=== PATIENT | female | born 1985 | race Caucasian/White ===

== ENCOUNTER 2020-12-24 17:55 | Outpatient (CLI) | payer OTHER, SELFPAY ==
--- NOTE | ~2020-12-24 | XR_ITS ---
EXAMINATION: XR foot LT 2V EXAM DATE: 12/24/2020 18:12 INDICATION: Pain in Lt ankle and joints of Lt foot, fell 7/6. Left foot swelling. TECHNIQUE: Frontal and lateral projections of the left foot. There is no prior study for comparison . FINDINGS: There are no acute fractures or dislocations identified. There is no subcutaneous gas. The soft tissue is unremarkable. There are no radiopaque foreign bodies. IMPRESSION: No acute osseous findings. Reviewed, dictated and finalized at location A. IMPRESSION: No acute osseous findings.
== END 2020-12-24 17:56 | disposition home or self-care (01) ==
LOC: ANHIMG 17:58
PROVIDERS: PCP Internal Medicine; Visit Provider Pediatrics
DX: M25.572 Pain in left ankle and joints of left foot (principal)
CPT/HCPCS: 73620

== ENCOUNTER 2021-05-05 09:23 | Outpatient (CLI) | payer OTHER, SELFPAY ==
[2021-05-05 10:35] LABS: Alanine Aminotransferase 13 U/L (4-35); Albumin Level 4.3 g/dL (3.5-5.1); Alkaline Phosphatase 42 U/L (38-126); Anion Gap 3 mmol/L (8-16); Aspartate Amino Transferase 26 U/L (14-36); Bilirubin,Total 0.3 mg/dL (0.2-1.3); Blood Urea Nitrogen 12 mg/dL (7-17); Calcium 9.4 mg/dL (8.4-10.2); Carbon Dioxide 30 mmol/L (22-30); Chloride 104 mmol/L (98-107); Cholesterol 147 mg/dL (0-200); Estimated Glomerular Filt Rate > 60; Glucose 92 mg/dL (65-110); HDL Direct 53 mg/dL; Potassium 4.2 mmol/L (3.4-5.0); Sodium 137 mmol/L (137-145); Triglycerides 66 mg/dL (<150)
[2021-05-05 10:46] LABS: LDL Cholesterol Direct 76 mg/dL
[2021-05-05 10:53] LABS: Basophils Absolute Auto 0.1 K/mm3 (0.0-0.1); Basophils Percent Auto 0.9 % (0.2-1.2); Eosinophils Absolute Auto 0.2 K/mm3 (0-0.3); Eosinophils Percent Auto 2.3 % (0-4.4); Hemoglobin 13.1 g/dL (12.0-15.0); Immature Granulocyte Absolute 0.02 K/mm3 (0.00-0.031); Immature Granulocyte Percent A 0.3 % (0-0.5); Lymphocytes Absolute Auto 1.77 K/mm3 (0.9-3.2); Mean Corpuscular HGB Conc 33.6 g/dl (32-36); Mean Corpuscular Hemoglobin 32.5 pg (26-34); Mean Corpuscular Volume 96.8 fl (80-100); Mean Platelet Volume 9.8 fl (7.4-10.4); Monocytes Absolute Auto 0.7 K/mm3 (0.1-0.6); Monocytes Percent Auto 9.4 % (2.6-8.5); Neutrophils Absolute Auto 4.7 K/mm3 (1.3-6.7); Neutrophils Percent Auto 63.1 % (45.5-73.1); Platelet Count Result 306 k/mm3 (150-375); Red Blood Count 4.03 M/mm3 (4.2-5.4); Red Cell Distribution Width 12.5 % (11.5-14.5); White Blood Count 7.4 K/mm3 (4.5-10.0)
[2021-05-05 11:40] LABS: Folic Acid 6.4 ng/mL (2.76->20)
== END 2021-05-05 09:24 | disposition home or self-care (01) ==
PROVIDERS: PCP Internal Medicine; Visit Provider Internal Medicine
DX: Z00.00 Encounter for general adult medical examination without abnormal findings (principal); R53.83 Other fatigue
CPT/HCPCS: 36415; 80053; 80061; 82607; 82746; 84443; 85025

== ENCOUNTER 2022-10-12 10:10 | Outpatient (RCR) | payer OTHER, SELFPAY ==
[2022-10-14] MEDS: RHO(D) IMMUNE GLOBULIN 300 MCG/2 ML SYRINGE IM (12:47)
== END 2023-01-10 23:59 | disposition home or self-care (01) ==
LOC: ANHLAB 10:10
PROVIDERS: PCP Internal Medicine; Visit Provider Obstetrics & Gynecology
DX: O36.0190 Maternal care for anti-D [Rh] antibodies, unspecified trimester, not applicable or unspecified (principal); Z3A.00 Weeks of gestation of pregnancy not specified
CPT/HCPCS: 36415; 85461; 86850; 86900; 86901; 90384; 96372; J2790

== ENCOUNTER 2022-12-08 15:56 | Inpatient (IN) | payer OTHER, MEDICAID, SELFPAY ==
[2022-12-08] VITALS (30 sets, daily range): BP systolic 111–161; BP diastolic 58–94; PULSE 57–90; TEMP 36.6–37.1; O2SAT 96–100
[2022-12-08] MEDS: DINOPROSTONE 10 MG VAG INSERT VAGINAL (16:40)
[2022-12-08 17:00] LABS: Basophils Absolute Auto 0.1 K/mm3 (0.0-0.1); Basophils Percent Auto 0.6 % (0.2-1.2); Eosinophils Absolute Auto 0.1 K/mm3 (0-0.3); Eosinophils Percent Auto 0.7 % (0-4.4); Hematocrit 27.9 % (37.0-47.0); Hemoglobin 8.6 g/dL (12.0-15.0); Immature Granulocyte Absolute 0.04 K/mm3 (0.00-0.031); Immature Granulocyte Percent A 0.5 % (0-0.5); Lymphocytes Absolute Auto 1.42 K/mm3 (0.9-3.2); Lymphocytes Percent Auto 17.2 % (18.3-44.2); Mean Corpuscular HGB Conc 30.8 g/dl (32-36); Mean Corpuscular Hemoglobin 26.9 pg (26-34); Mean Corpuscular Volume 87.2 fl (80-100); Mean Platelet Volume 10.3 fl (7.4-10.4); Monocytes Absolute Auto 0.7 K/mm3 (0.1-0.6); Monocytes Percent Auto 7.9 % (2.6-8.5); Neutrophils Absolute Auto 6.1 K/mm3 (1.3-6.7); Neutrophils Percent Auto 73.1 % (45.5-73.1); Platelet Count Result 303 k/mm3 (150-375); Red Cell Distribution Width 14.7 % (11.5-14.5); White Blood Count 8.3 K/mm3 (4.5-10.0)
[2022-12-08] MEDS: LACTATED RINGERS 1,000 ML 125 ML IV CONT ×2 (22:35→23:10)
--- NOTE | 2022-12-08 23:24 | WPDANESEPP ---
Anes - Eval Pre Procedure Procedure: labor epidural Date/Time: 12/08/22 23:24 Surgeon: issac Preop Diagnosis: pain during labor Pre Op Diagnosis: Induction of Labor Patient Data Age: 36 Gender: F Height: 1.68 m Weight: 84.5 kg Last Vital Signs Temp 37.0 C 12/08/22 22:37 Pulse 75 12/08/22 23:09 BP 112/76 12/08/22 23:09 O2 Del Method Room Air 12/08/22 16:19 Allergies Allergy/AdvReac Type Severity Reaction Status Date / Time No Known Allergies Allergy Verified 05/11/22 09:40 Home Medications Medication Instructions Recorded Confirmed Type omeprazole 20 mg capsule,delayed 20 mg PO DAILY 11/30/22 11/30/22 History release prenat.vits,willy,uxw-sssa-mgmly 1 tablet PO DAILY 11/30/22 12/08/22 History Laboratory Tests 12/08/22 16:48 WBC 8.3 K/mm3 (4.5-10.0) RBC 3.20 L M/mm3 (4.2-5.4) Hgb 8.6 L D g/dL (12.0-15.0) Hct 27.9 L % (37.0-47.0) MCV 87.2 fl (80-100) MCH 26.9 pg (26-34) MCHC 30.8 L g/dl (32-36) RDW 14.7 H % (11.5-14.5) Plt Count 303 k/mm3 (150-375) MPV 10.3 fl (7.4-10.4) Immature Gran % (Auto) 0.5 % (0-0.5) Neut % (Auto) 73.1 % (45.5-73.1) Lymph % (Auto) 17.2 L % (18.3-44.2) Mills % (Auto) 7.9 % (2.6-8.5) Eos % (Auto) 0.7 % (0-4.4) Baso % (Auto) 0.6 % (0.2-1.2) Lymph # (Auto) 1.42 K/mm3 (0.9-3.2) Mills # (Auto) 0.7 H K/mm3 (0.1-0.6) Eos # (Auto) 0.1 K/mm3 (0-0.3) Baso # (Auto) 0.1 K/mm3 (0.0-0.1) Abs Immat Gran (auto) 0.04 H K/mm3 (0.00-0.031) Absolute Neuts (auto) 6.1 K/mm3 (1.3-6.7) Absolute Nucleated RBC 0.0 K/mm3 (0.0-0.012) Nucleated RBC % 0.0 % (0.0-0.2) RPR Pending Blood Type A Negative Antibody Screen Positive Antibody Identification Passive Due to RH Imm Glob Antigen Identification Cancelled DANIEL, IgG Interpret Not Performed DANIEL, Poly Interpret Negative DANIEL, Complement Interp Not Performed Patient hx anesthesia problems: none Family hx anesthesia problems: none Results Review: All pre-operative results and documents have been reviewed as part of the pre-operative evaluation. [facility] Past Medical History Medical History (Updated 12/08/22 @ 23:24 by Rita Kiran CRNA) IUP (intrauterine ), incidental Surgical History Surgical History History of appendectomy Hx of tonsillectomy Family History Family History (Updated 11/30/22 @ 14:40 by Xiao Wasserman RN) Other Family history of alcoholism Patient denies significant medical history Social History Social History (Updated 05/11/22 @ 09:41 by Nikky Joy MA) Smoking status: Never smoker Tobacco type: e-cigarettes/vaping Second hand tobacco smoke exposure: No Alcohol intake: current Alcohol use details: 1 time a year Substance use: never Lack of Transportation: No Lack of Food: Never True Current Housing: I Have Housing Concerned About Future Housing: No Difficulty Paying Gas/Electric Bills: No Difficulty Paying for Meds: No Currently Unemployed: No Education: Trade/Vocational Certificate Difficulty w/ Childcare or Family Care: No Spiritual care concerns: No Exam Day of Procedure 12/08/22 23:24
[2022-12-09] VITALS (199 sets, daily range): BP systolic 101–154; BP diastolic 48–103; PULSE 55–136; RESP 18–20; TEMP 36.4–37.5; O2SAT 97–100
[2022-12-09] MEDS: OXYTOCIN 30 UNITS/NS 500 ML 30 UNITS/500 ML BAG IV CONT (05:22)
--- NOTE | 2022-12-09 08:33 | WPDOBADMIT ---
Obstetrics - Admit Note Admission Note: record reviewed. Additions to the history and/or subsequent changes in the physical findings follow. 36 y/o at 39 weeks gestation here for induction of labor. Cervidil overnight. Cervidil fell out overnight and she had SROM. Now receiving oxytocin. Comfortable with epidural. AVSS NST reactive TOCO: contractions every 2-4 min ABD soft, nontender, gravid, vertex EXT nontender Cervix 6/80/-2 A: IUP at term. P: Continue oxytocin. Anticipate .
[2022-12-09 09:02] LABS: Rapid Plasma Reagin Non-Reactive (NonReactive)
--- NOTE | 2022-12-09 11:52 | PC.NURSE ---
1050 - Did not introduce before delivery related to mother is pushing at this time.
[2022-12-09] MEDS: miSOPROStol 200 MCG TABLET 1000 MCG RECTAL (11:53)
--- NOTE | 2022-12-09 11:55 | PM.OBPRVD ---
OB - Delivery Note Procedure Delivery date: 12/09/22 Procedure: Induction of labor with Induction method: Per Cervidil Protocol Delivery augmentation: Rupture of Membranes and Pitocin Delivery monitor: External FHT and External Uterine Route of delivery: Laceration Description: Labial (Left labial) Delivery repair: vicryl (3-0 Vicryl) Specimen: Yes (cord blood) Quantitative Blood Loss (ml): 420 Anesthesia type: Epidural Disposition: PACU Complications: None Narrative: 36 y/o at 39 weeks gestation who presented to the hospital for induction of labor. Cervidil was placed overnight. It fell out in the middle of the night, and she subsequently had SROM. Oxytocin was administered intravenously. She received an epidural for pain control. Her labor progressed and her cervix dilated completely. She pushed with good effort and delivered the infant's head to the perineum, followed by the body. The nose and mouth were bulb suctioned. After a delay, the cord was clamped and cut. The was handed off the field. Cord blood was collected. The placenta delivered spontaneously and was grossly normal in appearance. The usual 3 vessel cord was noted. A left sided labial laceration was sustained. This was reapproximated using 3 0 Vicryl in interrupted figure of eight fashion. Excellent hemostasis resulted as did excellent reapproximation of the normal anatomy. Needle and instrument counts were correct. She had some bleeding associated with uterine atony that was addressed with IV oxytocin, uterine massage, 1000mcg Cytotec, and methergine 0.2 mg IM x 1. Hemostasis was achieved. The patient was taken to recovery room in stable condition. The went to the nursery in stable condition. I was present and scrubbed for the entire delivery. [place] Baby Date of : 12/09/22 Time of : 11:36 Weeks of gestation at delivery: 39 Infant gender: Male Weight (pounds): 10 Weight (ounces): 1 presentation: vertex position: Right Occiput Anterior Placenta delivery description: Spontaneous and Normal Configuration Cord Vessel Description: 3 Vessels and Delayed Cord Clamping score one minute: 8 score five minutes: 9
[2022-12-09] MEDS: METHYLERGONOVINE MALEATE 0.2 MG/ML VIAL IM (12:01)
[2022-12-09] MEDS: OXYTOCIN 30 UNITS/NS 500 ML 30 UNITS/500 ML BAG 125 UNITS IV CONT (12:18)
[2022-12-09] MEDS: WITCH HAZEL 40 PADS 1 PAD TOPICAL (14:07)
[2022-12-09] MEDS: BENZOCAINE 20% AER SPR (*SP) 56 GM CAN 1 SPRAY TOPICAL (14:07)
--- NOTE | 2022-12-09 14:35 | PM.OBDSVD ---
DS: Admitting Diagnosis Discharge Date 12/11/2022 <Santana Ny MD - Last Filed: 12/11/22 08:45> Admitting Diagnosis IUP at 39 weeks Desired sterility <Eduardo Byrne MD - Last Filed: 12/12/22 10:14> DS: Discharge Diagnosis Discharge Diagnosis (1) (normal spontaneous vaginal delivery): Code(s): O80 - Encounter for full-term uncomplicated delivery <Eduardo Byrne MD - Last Filed: 12/12/22 10:14> Status: Acute <Eduardo Byrne MD - Last Filed: 12/12/22 10:14> (2) Unwanted fertility: Code(s): Z30.09 - Encounter for other general counseling and advice on contraception <Eduardo Byrne MD - Last Filed: 12/12/22 10:14> Status: Acute <Eduardo Byrne MD - Last Filed: 12/12/22 10:14> OB - DS: Summary OB Procedures : None <Eduardo Byrne MD - Last Filed: 12/12/22 10:14> OB Procedures Intrapartum: Spontaneous Vag Delivery <Eduardo Byrne MD - Last Filed: 12/12/22 10:14> OB Procedures: : P.P. tubal ligation <Eduardo Byrne MD - Last Filed: 12/12/22 10:14> Time Spent with Patient Time attestation: Total time spent providing and/or coordinating discharge services: <Eduardo Byrne MD - Last Filed: 12/12/22 10:14> DS: Data Data Completed and Pending Labs on day of discharge: Labs from last 24 hours 12/08/22 16:48 WBC 8.3 RBC 3.20 L Hgb 8.6 L D Hct 27.9 L MCV 87.2 MCH 26.9 MCHC 30.8 L RDW 14.7 H Plt Count 303 MPV 10.3 Immature Gran % (Auto) 0.5 Neut % (Auto) 73.1 Lymph % (Auto) 17.2 L [facility] % (Auto) 7.9 Eos % (Auto) 0.7 Baso % (Auto) 0.6 Lymph # (Auto) 1.42 [facility] # (Auto) 0.7 H Eos # (Auto) 0.1 Baso # (Auto) 0.1 Abs Immat Gran (auto) 0.04 H Absolute Neuts (auto) 6.1 Absolute Nucleated RBC 0.0 Nucleated RBC % 0.0 RPR Non-reactive Blood Type A Negative Antibody Screen Positive Antibody Identification Passive Due to RH Imm Glob Antigen Identification Cancelled DANIEL, IgG Interpret Not Performed DANIEL, Poly Interpret Negative DANIEL, Complement Interp Not Performed <Eduardo Byrne MD - Last Filed: 12/12/22 10:14> Discharge Plan Discharge Attending physician on discharge: Eduardo Byrne <Eduardo Byrne MD - Last Filed: 12/12/22 10:14> Eduardo Byrne <Santana Ny MD - Last Filed: 12/11/22 08:45> Discharging Clinician: Eduardo Byrne <Eduardo Byrne MD - Last Filed: 12/12/22 10:14> Eduardo Byrne <Santana Ny MD - Last Filed: 12/11/22 08:45> Patient Disposition: Home, Self-Care <Eduardo Byrne MD - Last Filed: 12/12/22 10:14> Activity: pelvic rest <Eduardo Byrne MD - Last Filed: 12/12/22 10:14> pelvic rest <Santana Ny MD - Last Filed: 12/11/22 08:45> Diet: regular <Eduardo Byrne MD - Last Filed: 12/12/22 10:14> regular <Santana Ny MD - Last Filed: 12/11/22 08:45> Wound Care Instructions: incision open to air <Eduardo Byrne MD - Last Filed: 12/12/22 10:14> incision open to air <Santana Ny MD - Last Filed: 12/11/22 08:45> Discharge Instructions: Education: Mom and Baby Guide Given to: Mother Follow-Up: Call your delivering provider's office for an appointment to be seen in: 6 Weeks Mom and baby [facility] for the follow-up appointment. Appointment Date/Time: Monday, December 12, 2022 at 10:00 a.m. What to expect at your follow-up visit: Blood Pressure Check Physical Assessment Call [phone] if you are unable to keep your appointment time. BREAST CARE: * Wear a snug supportive bra. * For engorgement discomfort: Breast Feeding: * Apply warm moist washcloths * Express milk as needed to relieve engorgement * Wear loose clothing Bottle Feeding: * May apply ice packs
--- NOTE | 2022-12-09 14:38 | PM.IMHP ---
H&P: HPI History of Present Illness Date/Time: 12/09/22 14:38 Chief Complaint: Desired sterility Narrative: 36 y/o who had a vaginal delivery on 12/09/22. She desires permanent contraception with bilateral tubal ligation. Review of Systems Review of Systems: All systems reviewed & are unremarkable except as noted in HPI and below PMFSH Past Medical History Medical History IUP (intrauterine ), incidental Surgical History Surgical History History of appendectomy Hx of tonsillectomy Family History Family History Other Family history of alcoholism Patient denies significant medical history Social History Social History Smoking status: Never smoker Tobacco type: e-cigarettes/vaping Second hand tobacco smoke exposure: No Alcohol intake: current Alcohol use details: 1 time a year Substance use: never Lack of Transportation: No Lack of Food: Never True Current Housing: I Have Housing Concerned About Future Housing: No Difficulty Paying Gas/Electric Bills: No Difficulty Paying for Meds: No Currently Unemployed: No Education: Trade/Vocational Certificate Difficulty w/ Childcare or Family Care: No Spiritual care concerns: No Meds Home Medications and Allergies Home Medications Medication Instructions Recorded Confirmed Type omeprazole 20 mg capsule,delayed 20 mg PO DAILY 11/30/22 11/30/22 History release prenat.vits,willy,[id number] 1 tablet PO DAILY 11/30/22 12/08/22 History Allergies Allergy/AdvReac Type Severity Reaction Status Date / Time No Known Allergies Allergy Verified 05/11/22 09:40 Vital Signs Vital Signs - 24 hr 12/08/22 16:19 12/08/22 16:48 12/08/22 16:40 Temperature 36.6 C Pulse Rate 87 Blood Pressure 129/82 Pulse Oximetry Oxygen Delivery Room Air 12/08/22 17:01 12/08/22 17:31 12/08/22 18:01 Temperature Pulse Rate 82 79 76 Blood Pressure 116/58 L 111/60 115/64 Pulse Oximetry Oxygen Delivery 12/08/22 18:31 12/08/22 19:55 12/08/22 20:01 Temperature Pulse Rate 78 72 77 Blood Pressure 120/79 133/83 134/87 Pulse Oximetry Oxygen Delivery 12/08/22 20:00 12/08/22 21:01 12/08/22 21:20 Temperature 37.1 C 37.1 C Pulse Rate 78 Blood Pressure 132/76 Pulse Oximetry Oxygen Delivery 12/08/22 22:01 12/08/22 22:37 12/08/22 23:01 Temperature 37.0 C Pulse Rate 74 70 Blood Pressure 123/75 161/81 H Pulse Oximetry Oxygen Delivery 12/08/22 23:09 12/08/22 23:24 12/08/22 23:26 Temperature Pulse Rate 75 57 L Blood Pressure 112/76 135/84 Pulse Oximetry 96 Oxygen Delivery 12/08/22 23:29 12/08/22 23:31 12/08/22 23:34 Temperature Pulse Rate 71 Blood Pressure 153/94 H Pulse Oximetry 100 100 Oxygen Delivery 12/08/22 23:36 12/08/22 23:39 12/08/22 23:42 Temperature Pulse Rate 75 81 Blood Pressure 138/88 138/69 Pulse Oximetry 100 Oxygen Delivery 12/08/22 23:44 12/08/22 23:46 12/08/22 23:49 Temperature Pulse Rate 77 Blood Pressure 137/74 Pulse Oximetry 100 100 Oxygen Delivery 12/08/22 23:51 12/08/22 23:54 12/08/22 23:56 Temperature Pulse Rate 79 78 Blood Pressure 130/72 118/88 Pulse Oximetry 100 Oxygen Delivery 12/08/22 23:59 12/09/22 00:01 12/09/22 00:04 Temperature Pulse Rate 87 Blood Pressure 131/71 Pulse Oximetry 99 98 Oxygen Delivery 12/09/22 00:06 12/09/22 00:09 12/09/22 00:11 Temperature Pulse Rate 81 90 Blood Pressure 132/68 116/78 Pulse Oximetry 99 Oxygen Delivery 12/09/22 00:14 12/09/22 00:16 12/09/22 00:19 Temperature Pulse Rate 71 Blood Pressure 120/69 Pulse Oximetry 100 99 Oxygen Delivery
[2022-12-09] MEDS: IBUPROFEN 600 MG TABLET PO ×2 (15:05→20:44)
[2022-12-09] MEDS: POLYSACCHARIDE IRON COMPLEX 150 MG CAPSULE PO (17:30)
[2022-12-09] MEDS: DOCUSATE SODIUM 100 MG CAPSULE PO (17:30)
[2022-12-09 18:01] LABS: Hemoglobin 8.4 g/dL (12.0-15.0)
[2022-12-10 00:15] VITALS: BP 131/71; PULSE 80; RESP 18; TEMP 36.6; O2SAT 100
[2022-12-10] MEDS: ACETAMINOPHEN 325 MG TABLET 650 MG PO ×3 (01:05→20:00)
[2022-12-10 04:45] VITALS: BP 129/71; PULSE 84; RESP 18; TEMP 36.5; O2SAT 100
[2022-12-10] MEDS: IBUPROFEN 600 MG TABLET PO ×2 (04:45→16:53)
[2022-12-10 05:11] LABS: Hematocrit 23.4 % (37.0-47.0); Hemoglobin 7.5 g/dL (12.0-15.0)
--- NOTE | 2022-12-10 07:37 | WPDANLDPN2 ---
Anes-Prog Note L&D Date/Time: 12/10/22 07:37 Comfortable throughout: labor and delivery Neuraxial method: epidural Epidural/Spinal procedure site: clean & non-tender Neuro status: Neuro function grossly intact. Cardiovascular status: normal Respiratory status: normal Airway patency: baseline Mental status: baseline Post-Op hydration status: normal Vital Signs: Last Vital Signs Temp 36.5 C 12/10/22 04:45 Pulse 84 12/10/22 04:45 Resp 18 12/10/22 04:45 BP 129/71 12/10/22 04:45 Pulse Ox 100 12/10/22 04:45 O2 Del Method Room Air 12/10/22 04:45 Pain score (VAS): 3/10 I/O: Intake & Output 12/09/22 12/09/22 12/10/22 15:59 23:59 07:59 Intake Total 750 Output Total 720 211 Balance 30 -211 Post-procedural complaints: none Patient feedback: Patient satisfied with anesthetic care.
[2022-12-10 08:00] VITALS: PULSE 91; RESP 16; O2SAT 99
[2022-12-10 08:10] VITALS: BP 122/84; PULSE 91; RESP 16; TEMP 36.8; O2SAT 99
--- NOTE | 2022-12-10 08:41 | PM.OBPNVD ---
OB - PN: Subj Subjective Date/time seen: 12/10/22 08:41 Narrative: Pain OK. She has decided not to have tubal ligation today. Does want circumcision for son. OB - PN: Obj Data Labs 12/10/22 04:46 Labs: Laboratory Results - last 24 hr 12/08/22 12/09/22 12/10/22 16:48 17:47 04:46 Hgb 8.4 L 7.5 L Hct 26.0 L 23.4 L RPR Non-reactive OB - PN A/P Plan Comments: A: PPD#1, doing well. P: Routine care. Reviewed circ. Exam Psych: Other: AVSS ABD soft, nontender, fundus firm EXT nontender
[2022-12-10] MEDS: POLYSACCHARIDE IRON COMPLEX 150 MG CAPSULE PO ×2 (10:21→16:53)
[2022-12-10] MEDS: MULTIVIT/MIN/PREN/FOL AC/IRON TABLET 1 TAB PO (10:21)
[2022-12-10] MEDS: DOCUSATE SODIUM 100 MG CAPSULE PO ×2 (10:21→16:53)
[2022-12-10] MEDS: PANTOPRAZOLE 40 MG TABLET PO (10:22)
--- NOTE | 2022-12-10 10:46 | PC.NURSE ---
[id number] Introductions were made, then consulted with patient to assess needs related to . Mother led the conversation with her?plans to feed?her infant and the?experience so far. Resources provided for inpatient and outpatient services with the feeding sheet, mom/baby guide and name written on the white board. Mother voiced understanding of information and request conversation on her feeding plan, pumping, and . Breast pump provided prior to RN meeting pt due to combination feeding. Mother states she has not pumped yet. Mother states is latching effectively and without pain, however; she was tired and has given infant a couple of bottles. Risks and benefits were discussed along with protecting her milk supply supporting mother's choice to feed. Mother demonstrated her knowledge of latching her infant to the right breast using cross cradle positioning. Education given to mother of how to visualize suck/swallow ratios and listen for drinking at the breast. Infant was able to maintain latch without discomfort to mother while effectively in good alignment. Nipple care reviewed with optimal latch and good positioning. Resources used to facilitate learning were used with the tool. Mother voiced understanding of skin to skin, stimulating with massage touch, responsive feedings, gentle hand expressed colostrum, nipple stretching, talking to infant to encourage if it has been 2 -2.5 hours since the start of the last , to call if does not latch, or if there is discomfort with . Reviewed pumping/nipple stretching/stimulation for adequate milk production if doesn't latch or receives a bottle. Reviewed 8-12 times in 24 hours to remove milk to encourage a robust milk supply. Mother voiced understanding of the education shared along with mom and baby guide for additional resource information. Mother will call for assistance with pumping later to assess flange fit. Nipple measured and 21mm flange is possibly the best fit. Discussed with mother there needs to be a few minutes of pumping to adequately assess, however; there's to be no pain with pumping. Reported to the primary RN.
[2022-12-10 20:00] VITALS: BP 139/86; PULSE 71; RESP 16; RESP 18; TEMP 36.4; O2SAT 100
[2022-12-11] MEDS: IBUPROFEN 600 MG TABLET PO ×2 (00:29→09:37)
[2022-12-11 07:55] VITALS: BP 118/81; PULSE 83; RESP 16; TEMP 36.6; O2SAT 99
[2022-12-11 08:00] VITALS: PULSE 83; RESP 16; O2SAT 99
[2022-12-11] MEDS: MULTIVIT/MIN/PREN/FOL AC/IRON TABLET 1 TAB PO (09:37)
[2022-12-11] MEDS: DOCUSATE SODIUM 100 MG CAPSULE PO (09:38)
[2022-12-11] MEDS: POLYSACCHARIDE IRON COMPLEX 150 MG CAPSULE PO (09:38)
--- NOTE | 2022-12-11 11:45 | PC.NURSE ---
0845 - Purposefully rounded to assess mothers pumping needs. Mother has already used the insurance [employer] 2 pump without pain and doesn't have any questions at this time. Mother is feeding appropriately for growth of and understands stimulating infant to eat if needed. Reviewed community resources and when to call a provider using the resource of the mom and baby guide/[facility] website. Mother voiced understanding of the education shared. Reported to the primary RN.
--- NOTE | 2022-12-11 15:30 | PC.NURSE ---
1000-Patient was given the opportunity to view the discharge video Mother & Baby Care, The First Two Weeks and to ask questions. Patient declined viewing the video and has been given the mother/baby guide for home reference.
[2022-12-12 10:24] VITALS: BP 125/85; PULSE 85; RESP 20; TEMP 36.9; O2SAT 100
== END 2022-12-11 11:56 | disposition home or self-care (01) | DRG 807 ==
LOC: ANHLDR 16:00 → ANHOB2 12-09 14:26
PROVIDERS: Admitting Provider Obstetrics & Gynecology; PCP Internal Medicine; Visit Provider Obstetrics & Gynecology
DX: O70.0 First degree perineal laceration during delivery (principal); Z37.0 Single live birth; Z3A.39 39 weeks gestation of pregnancy
CPT/HCPCS: 36415; 84112; 85014; 85018; 85025; 86592; 86850; 86880; 86900; 86901; 86902; A9270; J2210; J2590; J2795; J7120

== ENCOUNTER 2022-12-19 22:17 | Emergency (ER) | payer OTHER, MEDICAID, SELFPAY ==
[2022-12-19] VITALS (7 sets, daily range): BP systolic 112–122; BP diastolic 64–73; PULSE 90–114; RESP 15–23; TEMP 36.9; O2SAT 97–99
[2022-12-19 22:36] LABS: Basophils Absolute Auto 0.1 K/mm3 (0.0-0.1); Basophils Percent Auto 0.4 % (0.2-1.2); Eosinophils Percent Auto 0.2 % (0-4.4); Hematocrit 25.4 % (37.0-47.0); Hemoglobin 7.9 g/dL (12.0-15.0); Immature Granulocyte Percent A 0.7 % (0-0.5); Lymphocytes Absolute Auto 1.38 K/mm3 (0.9-3.2); Lymphocytes Percent Auto 9.9 % (18.3-44.2); Mean Corpuscular HGB Conc 31.1 g/dl (32-36); Mean Corpuscular Hemoglobin 26.9 pg (26-34); Mean Corpuscular Volume 86.4 fl (80-100); Mean Platelet Volume 8.5 fl (7.4-10.4); Monocytes Percent Auto 6.8 % (2.6-8.5); Neutrophils Absolute Auto 11.4 K/mm3 (1.3-6.7); Nucleated Red Blood Cells Perc 0.1 % (0.0-0.2); Platelet Count Result 474 k/mm3 (150-375); Red Blood Count 2.94 M/mm3 (4.2-5.4); Red Cell Distribution Width 17.2 % (11.5-14.5); White Blood Count 13.9 K/mm3 (4.5-10.0)
[2022-12-19 23:24] LABS: Alanine Aminotransferase 42 U/L (6-35); Albumin Level 3.7 g/dL (3.5-5.1); Alkaline Phosphatase 135 U/L (38-126); Anion Gap 5 mmol/L (8-16); Aspartate Amino Transferase 36 U/L (14-36); Bilirubin,Total 0.5 mg/dL (0.2-1.3); Blood Urea Nitrogen 9 mg/dL (7-17); Calcium 8.5 mg/dL (8.4-10.2); Carbon Dioxide 25 mmol/L (22-30); Chloride 103 mmol/L (98-107); Estimated CRCL calculation 78 ml/min; Estimated Glomerular Filt Rate > 60; Glucose 115 mg/dL (65-110); Potassium 3.3 mmol/L (3.4-5.0); Sodium 133 mmol/L (137-145)
--- NOTE | 2022-12-19 23:28 | ED.FEMALEGU ---
HPI - Female Genitourinary General Chief complaint: Vaginal Bleeding Stated complaint: vaginal bleeding - 10 days PP Time Seen by Provider: 12/19/22 22:45 Source: patient Mode of arrival: ambulatory Limitations: no limitations History of Present Illness HPI Narrative: This is a 36-year-old female who is status post day 10 of a normal spontaneous vaginal delivery who is presenting to the ED with chief complaint of vaginal bleeding. She states is been a problem since delivery. She states they gave her 2 medications for bleeding while she was in the hospital. She reports passing multiple clots every day. Today she started running through about 1 pad every hour bleeding cook. She also notes intermittent sharp abdominal pains but those have since subsided. Patient also reports general malaise along with a fever of 101?F this evening. She states Tylenol and Motrin have been helping with the pain and fevers. Denies nausea, vomiting, diarrhea, LOC, chest pain, shortness of breath, flank pain, urinary symptoms. Related Data Home Medications Medication Instructions Recorded Confirmed omeprazole 20 mg capsule,delayed 20 mg PO DAILY 11/30/22 11/30/22 release prenat.vits,willy,xrh-[id number]-xdrcf 1 tablet PO DAILY 11/30/22 12/08/22 Allergies Allergy/AdvReac Type Severity Reaction Status Date / Time No Known Allergies Allergy Verified 05/11/22 09:40 [facility] Past Medical History Medical History IUP (intrauterine ), incidental Surgical History Surgical History History of appendectomy Hx of tonsillectomy Family History Family History Other Family history of alcoholism Patient denies significant medical history Social History Social History Smoking status: Never smoker Tobacco type: e-cigarettes/vaping Second hand tobacco smoke exposure: No Alcohol intake: current Alcohol use details: 1 time a year Substance use: never Lack of Transportation: No Lack of Food: Never True Current Housing: I Have Housing Concerned About Future Housing: No Difficulty Paying Gas/Electric Bills: No Difficulty Paying for Meds: No Currently Unemployed: No Education: Trade/Vocational Certificate Difficulty w/ Childcare or Family Care: No Spiritual care concerns: No Exam Narrative: GENERAL: Well-appearing, well-nourished, and in no acute distress. HEAD: Normocephalic, atraumatic. EYES: PERRLA and EOMI. ENT: Nares clear, no rhinorrhea or epistaxis. Mucous membranes moist. Oropharynx without tonsillar hypertrophy exudate or other lesions. NECK: Supple. No adenopathy or masses. CHEST: No respiratory distress. Clear to auscultation. No wheezes rales or rhonchi HEART: Regular rate and rhythm. No murmur heard. Normal peripheral pulses. ABDOMEN: Soft, nontender, nondistended, normal active bowel sounds. MSK: Normal range of motion. No edema. SKIN: Warm, dry, no rash. NEURO: Alert and oriented x3. No focal deficits. PSYCH: Normal mood and affect. Pelvic exam done with female tech head trimmer present: Blood pooling in the vaginal vault. Multiple clots noted. There is blood products protruding from the cervical os. No purulent material noted. Labia are intact. No tenderness. Course Vital Signs Vital signs: Vital Signs Temperature 98.4 F 12/19/22 22:19 Pulse Rate 114 H 12/19/22 22:19 Respiratory Rate 16 12/19/22 22:19 Blood Pressure 122/72 12/19/22 22:19 Pulse Oximetry 99 12/19/22 22:19 Oxygen Delivery Room Air 12/19/22 22:19 Temperature 98.4 F 12/19/22 22:19 Pulse Rate 114 H 12/19/22 22:19 Respiratory Rate 16 12/19/22 22:19 Blood Pressure 122/72 12/19/22 22:19 Pulse Oximetry 99 12/19/22 22:19 Oxygen Delivery Room Air 12/19/22 22:19
[2022-12-19] MEDS: SODIUM CHLORIDE 0.9% IV 1,000 ML 999 ML IV CONT (23:31)
[2022-12-20 00:34] VITALS: PULSE 91; RESP 19; O2SAT 97
[2022-12-20 00:35] LABS: Appearance Urine Cloudy (Clear); Bilirubin Urine Negative (Negative); Blood Urine 3+ (Negative); Color Urine Orange (Yellow); Glucose Urine UA Negative (Negative); Ketones Urine Negative (Negative); Leukocyte Esterase Ur 3+ LEU/UL (Negative); Nitrate Urine Negative (Negative); Protein Urine 1+ mg/dL (Negative); Specific Grav Ur 1.004 (1.001-1.035); Urobilinogen Urine 0.2 mg/dL (<2.0); pH Urine 5.5 (5.0-9.0)
[2022-12-20 00:36] LABS: Bacteria Urine Rare /hpf; Need Manual Microscopic Reviewed; RBC Urine 51-100 /hpf (0-2); Squamous Epithelial Cell Urine None seen /hpf (Few); WBC Urine >100 /hpf
[2022-12-20 00:37] LABS: Add Urine Microscopic? YES
[2022-12-20 00:45] VITALS: PULSE 92; RESP 25; O2SAT 98
[2022-12-20 00:59] VITALS: PULSE 87; RESP 10; O2SAT 98
[2022-12-20 01:06] VITALS: PULSE 88; RESP 15; O2SAT 98
[2022-12-20] MEDS: cefTRIAXone 2 GM/NS 100 ML 2 GM/100 ML BAG IVPB (01:12)
[2022-12-20 01:32] VITALS: PULSE 92; RESP 17; O2SAT 99
== END 2022-12-20 01:50 | disposition home or self-care (01) ==
PROVIDERS: Emergency Medicine; Emergency Provider Physician Assistant; PCP Internal Medicine
DX: N93.9 Abnormal uterine and vaginal bleeding, unspecified (principal); N39.0 Urinary tract infection, site not specified
CPT/HCPCS: 36415; 80053; 81001; 84702; 85025; 87086; 87088; 87147; 96361; 96365; 99284; J0696; J7030

== ENCOUNTER 2023-09-01 03:13 | Day surgery (SDC) | payer OTHER, MEDICAID, SELFPAY ==
[2023-08-25 11:18] VITALS: BMI 22.6
--- NOTE | 2023-08-25 11:19 | PC.NURSE ---
Report to the Outpatient Waiting Room, entrance under the green pavilion located off [facility], at time 1100 on date 09/01/23. Planned Procedure Time: 1300. Time changes happen often and if your time is changed the preop area will call you the afternoon before. - You and your visitor will be asked to self-screen and do not enter if you have any COVID symptoms. - A mask is optional within the hospital at this time. Patients may have clear liquids (water, carbonated beverages, clear teas, apple juice) until 3 hours prior to surgery with a maximum of 20 ounces. - No food from midnight until time of surgery Take the following medications with a SIP of water the morning of surgery: NONE DO NOT STOP ANY OF YOUR OTHER PRESCRIPTION MEDICATIONS PRIOR TO SURGERY ?EXCEPT THE FOLLOWING Medications to discontinue per physician: VITAMINS Date to take last dose: 08/28/23 Please no make-up, nail malawian, hairspray, perfume, deodorant, or body powder the day of surgery. No jewelry (including any body piercings) or valuables the day of surgery, leave them at home. Please take a shower or bath the night before, or the morning of, surgery with an antibacterial soap. Wear comfortable, loose fitting clothing. - Jewelry must be removed prior to entering the operating room. Rings and piercings that are not removed may be cut off. - The hospital will not accept responsibility for valuables. - Please leave all valuables, including medications, at home the day of surgery. If you are going home after surgery, a licensed boom truck driver must drive you home. - NO public transportation without another adult if you receive anesthesia. - We recommend that an adult stay with you for 24 hours following discharge. - We also recommend that you do not drive, make important decision, drink alcoholic beverages, or take any drugs that were not prescribed by your health care provider for at least 24 hours after your discharge time. Follow any additional instructions given to you from your surgeon. If you or anyone in your household have experienced Covid symptoms in the past week, please notify your surgeon or the nurse liaison at the phone number below for possible testing. Telephone instructions given to PT Henrik ACEVEDO and asked if any additional questions and then verbalized understanding. Patient advised to call surgeon office or pre surgery nurse liaison [phone] if any additional questions.
[2023-09-01] VITALS (9 sets, daily range): BP systolic 107–167; BP diastolic 55–91; PULSE 52–94; RESP 14–20; TEMP 36.8–37.1; O2SAT 98–100
[2023-09-01] MEDS: ACETAMINOPHEN 500 MG TABLET 1000 MG PO (11:32)
[2023-09-01] MEDS: SCOPOLAMINE 1 MG PATCH 1 PATCH TRANSDERM (11:34)
[2023-09-01] MEDS: LACTATED RINGERS 1,000 ML 30 ML IV CONT ×2 (11:40→14:05)
[2023-09-01] MEDS: KETOROLAC 15 MG/ML VIAL (*BKC) IV PUSH (11:42)
--- NOTE | 2023-09-01 12:10 | PM.IMHP ---
H&P: HPI History of Present Illness Date/Time: 09/01/23 12:10 Chief Complaint: Here for tubal ligation Narrative: 37 y/o desiring permanent contraception with tubal ligation. Review of Systems Review of Systems: All systems reviewed & are unremarkable except as noted in HPI and below PMFSH Past Medical History Medical History (Updated 09/01/23 @ 12:12 by Eduardo Byrne MD) IUP (intrauterine ), incidental Unwanted fertility Surgical History Surgical History History of appendectomy Hx of tonsillectomy Family History Family History Other Family history of alcoholism Patient denies significant medical history Social History Social History Smoking status: Current every day smoker Tobacco type: e-cigarettes/vaping Second hand tobacco smoke exposure: No Additional smoking assessment comments: 5 YRS Alcohol intake: current Alcohol use details: 1/YEAR Substance use: current Substance use type: marijuana Other substance usage details: 3 TIMES A WEEK Lack of Transportation: No Lack of Food: Never True Current Housing: I Have Housing Concerned About Future Housing: No Difficulty Paying Gas/Electric Bills: No Difficulty Paying for Meds: No Currently Unemployed: No Education: Trade/Vocational Certificate Difficulty w/ Childcare or Family Care: No Living arrangements: with family Spiritual care concerns: No Meds Home Medications and Allergies Home Medications Medication Instructions Recorded Confirmed Type medroxyprogesterone 150 mg/mL 150 mg IM [id number] 05/05/23 08/25/23 History intramuscular syringe (Depo-Provera) multivitamin 1 tablet PO DAILY 08/25/23 09/01/23 History Allergies Allergy/AdvReac Type Severity Reaction Status Date / Time No Known Allergies Allergy Verified 09/01/23 11:28 Vital Signs Vital Signs - 24 hr 09/01/23 11:10 Temperature 36.8 C Pulse Rate 94 Respiratory Rate 18 Blood Pressure 107/55 L Pulse Oximetry 98 Oxygen Delivery Room Air Exam Const: Orientation/consciousness: patient oriented x3 Other: Well-developed, well-nourished female in no acute distress. Neck: Thyroid: thyroid normal Lymphatic: no lymphadenopathy noted (in neck, axilla or inguinal nodes) Resp: Effort & Inspection: normal respiratory effort Auscultation: clear to auscultation bilaterally Cardio: Rate: regular rate Rhythm: regular rhythm Heart sounds: S1 normal heart sound present and S2 normal heart sound present GI: Other: ABD: Soft, nontender, nondistended. No guarding or rebound tenderness. No hepatosplenomegaly. : General: Yes no CVA tenderness Other: External genitalia: normal female hair distribution, without lesion. Urethral meatus: no lesion, non prolapsed. Bladder: no mass, nontender Vagina: well-estrogenized, without lesion or discharge. No cystocele or rectocele. Cervix: no lesion or discharge. Uterus: small, anteverted, freely mobile, nontender Adnexa: no mass or tenderness. Anus/perineum: no lesions, nontender Back/Spine/Pelvis: Back: no CVA tenderness Skin: General skin exam: normal color and no rashes or lesions noted Neuro: General: patient oriented x3 Extrem: Other: Extremities: nontender with no edema Psych: Mental Status: mental status grossly normal Affect: normal affect Assessment and Plan Assessment and plan (1) Unwanted fertility: Code(s): Z30.09 - Encounter for other general counseling and advice on contraception Status: Acute Assessment and Plan: A: Desired sterility. P: She understands there are temporary methods of contraception available to her. She understands that there are nonsurgical options as well as surgical options. She understands that tubal ligation will
--- NOTE | 2023-09-01 12:24 | WPDHPUPDATE1 ---
History and Physical Update Update Date/Time: 09/01/23 12:24 History and Physical has been reviewed, including an updated exam of the patient. There are NO changes in the patient's condition. Risks, benefits, and alternatives have been discussed and questions answered. Patient agrees to proceed with procedure.
--- NOTE | 2023-09-01 12:33 | P.PNAN_ITS ---
Anes - Initial Pre Proc Eval Procedure: Operation Date: 09/01/23 13:00 Proposed Procedures p Laparoscopic Bilateral Tubal Sterilization with Fallopian Rings - Eduardo Byrne MD Date/Time: 09/01/23 12:33 Surgeon: Eduardo Byrne MD Pre Op Diagnosis: Desire Serilization Patient Data Age: 37 Gender: F Height: 1.68 m Weight: 62.55 kg Last Vital Signs Temp 36.8 C 09/01/23 11:10 Pulse 94 09/01/23 11:10 Resp 18 09/01/23 11:10 BP 107/55 L 09/01/23 11:10 Pulse Ox 98 09/01/23 11:10 O2 Del Method Room Air 09/01/23 11:10 Allergies Allergy/AdvReac Type Severity Reaction Status Date / Time No Known Allergies Allergy Verified 09/01/23 11:28 Home Medications Medication Instructions Recorded Confirmed Type medroxyprogesterone 150 mg/mL 150 mg IM [id number] 05/05/23 08/25/23 History intramuscular syringe (Depo-Provera) multivitamin 1 tablet PO DAILY 08/25/23 09/01/23 History Patient hx anesthesia problems: none Family hx anesthesia problems: none Results Review: All pre-operative results and documents have been reviewed as part of the pre- operative evaluation. [facility] Past Medical History Medical History (Updated 09/01/23 @ 12:34 by Santana Alberto MD) Unwanted fertility Surgical History Surgical History History of appendectomy Hx of tonsillectomy Family History Family History Other Family history of alcoholism Patient denies significant medical history Social History Social History Smoking status: Current every day smoker Tobacco type: e-cigarettes/vaping Second hand tobacco smoke exposure: No Additional smoking assessment comments: 5 YRS Alcohol intake: current Alcohol use details: 1/YEAR Substance use: current Substance use type: marijuana Other substance usage details: 3 TIMES A WEEK Lack of Transportation: No Lack of Food: Never True Current Housing: I Have Housing Concerned About Future Housing: No Difficulty Paying Gas/Electric Bills: No Difficulty Paying for Meds: No Currently Unemployed: No Education: Trade/Vocational Certificate Difficulty w/ Childcare or Family Care: No Living arrangements: with family Spiritual care concerns: No Anes - Eval Final PreProcedure Day of Procedure 09/01/23 12:33 Patient weight: normal Heart: regular rate and rhythm Lungs: clear to auscultation Airway: Mallampati scale class II Neurological: alert and oriented Last oral intake: >/= 8 hours ASA classification: II Emergent: no Anesthetic plan: proceed Anesthesia type and monitoring: general ETT and standard monitoring Results Review: All pre-operative results and documents have been reviewed as part of the pre- operative evaluation. Informed Consent: The patient's anesthetic plan and its attendant risks and benefits were discussed with the patient/family/POA. Questions were solicited and answers provided to the satisfaction of the patient/family/POA.
[2023-09-01] MEDS: LIDOCAINE HCL 1% LOCAL INJ 20 ML VIAL 10 ML INFILTRATE (13:29)
--- NOTE | 2023-09-01 13:58 | P.OP_ITS ---
Procedure Note - Detailed Date of Procedure 09/01/23 Pre-op Diagnosis Desired Serilization Post-op Diagnosis Same Procedure Performed Laparoscopic bilateral tubal ligation with Falope rings Surgeon Eduardo Byrne MD Anesthesia General and Local (1% lidocaine) Findings Normal appearing liver and gallbladder. Normal-appearing uterus, bilateral Fallopian tubes and ovaries, anterior and posterior cul de sac, bilateral round and uterosacral ligaments. Description of Procedure The patient was taken to the operating room where general endotracheal anesthesia was administered. She was prepared and draped in the usual sterile fashion in dorsal lithotomy position. The bladder was drained with a red rubber catheter. A sterile speculum was placed into the vagina. The anterior lip of the cervix was grasped with a single-tooth tenaculum. The acorn uterine ma nipulator was placed. The speculum was withdrawn. Gloves were changed and attention was turned the abdomen. An infraumbilical skin incision was made with a scalpel. The abdomen was tented and a 5mm bladeless trocar was advanced under direct laparoscopic visualization. Pneumoperitoneum was administered using carbon dioxide gas. A survey of the pelvis and abdomen revealed the findings noted above. A second skin incision was made in the midline above the symphysis pubis and an 8mm bladeless trocar was advanced under direct laparoscopic visualization. The fallopian tube on the right side was followed out to the fimbriated end for identification. It was then grasped in the midportion with the Falope ring applicator. The Falope ring was tented applied. A good loop of tube was noted to be distal to the ring. Hemostasis was excellent. The device was reloaded and the contralateral tube was similarly identified and ligated. An excellent application was noted here as well. A total of 3 mL of 1% lidocaine was infiltrated into the serosa of the proximal tubes for postoperative anesthesia. The ports were withdrawn. The gas was allowed to escape. The skin incisions were reapproximated using interrupted subcuticular sutures of 4 0 Vicryl. Dermaflex was applied externally. The vaginal instrumentation was withdrawn and hemostasis was excellent here as well. Sponge, lap, needle and instrument counts were correct. The patient was awakened and taken to recovery room in stable condition. I was present and scrubbed through the entire procedure. Implants Falope rings x 2 Estimated Blood Loss 5 Drains No Packing No Pathology None sent Complications None Condition Stable Disposition PACU
[2023-09-01] MEDS: fentaNYL CITRATE INJ (*CRX) 100 MCG/2 ML VIAL 25 MCG IV PUSH ×8 (14:12→15:39)
[2023-09-01] MEDS: ONDANSETRON INJ 4 MG/2 ML VIAL IV PUSH (14:14)
[2023-09-01] MEDS: oxyCODONE HCL (*CRX) 5 MG TAB IR PO (15:10)
== END 2023-09-01 16:07 | disposition home or self-care (01) ==
PROVIDERS: PCP Internal Medicine; Visit Provider Obstetrics & Gynecology
PROC: (CPT 58671; principal; 2023-09-01 13:00)
DX: Z30.2 Encounter for sterilization (principal); F17.290 Nicotine dependence, other tobacco product, uncomplicated; F12.90 Cannabis use, unspecified, uncomplicated
CPT/HCPCS: 58671; A4264; A9270; J1100; J1885; J2250; J2405; J2704; J3010; J7120